=== PATIENT | female | born 1980 | race Caucasian/White ===

== ENCOUNTER 2022-08-13 09:41 | Outpatient (CLI) | payer MEDICAID, SELFPAY ==
[2022-08-13 14:11] LABS: Albumin* 4.2 g/dL (3.3-5.0); Chloride* 103 mmol/L (96-114); Sodium* 136 mmol/L (135-149)
[2022-08-13 14:13] LABS: Bilirubin Total* 0.2 mg/dL (0.1-1.5); Carbon Dioxide* 23 mmol/L (20-32); Cholesterol* 190 mg/dL (90-199); Creatinine* 0.8 mg/dL (0.5-1.5); Estimated Glomerular Filt Rate 95 ml/min
[2022-08-13 14:14] LABS: Alanine Aminotransferase* 13 U/L (4-35); Alkaline Phosphatase* 79 U/L (40-150); Aspartate Amino Transferase* 18 U/L (12-35); Blood Urea Nitrogen* 18 mg/dL (5-24); Glucose* 123 mg/dL (60-115); Total Protein* 6.6 g/dL (6.0-8.3); Triglycerides* 169 mg/dL (40-149)
[2022-08-13 14:15] LABS: Calcium* 8.8 mg/dL (8.4-10.6); HDL Cholesterol* 61 mg/dL (>=50); LDL Cholesterol Calculated 95 mg/dL (<100)
[2022-08-13 14:22] LABS: Hepatitis C Virus Antibody* Negative (Negative)
== END 2022-08-13 09:42 | disposition home or self-care (01) ==
PROVIDERS: PCP Family Medicine; Visit Provider Family Medicine
DX: Z01.419 Encounter for gynecological examination (general) (routine) without abnormal findings (principal); I10 Essential (primary) hypertension; F41.9 Anxiety disorder, unspecified; Z13.6 Encounter for screening for cardiovascular disorders; Z12.4 Encounter for screening for malignant neoplasm of cervix
CPT/HCPCS: 80053; 80061; 86803; 87624; 88175

== ENCOUNTER 2024-04-27 10:23 | Outpatient (CLI) | payer MEDICAID, SELFPAY ==
--- OUTSIDE RECORDS SUMMARY | 2024-04-27 10:26 | XMS_ITS | Continuity of Care Document ---
Author Organization [facility] Address [address] [place] [address] Phone Care Team Providers Care Small Products Assembler Name Role Phone Brittny Horvath CNP Unavailable Unavailab le Medications Medication Instructions Dosage Effective Dates (start - stop) Status Comments atenolol 25 mg tablet take 1 tablet by oral route every day 25 MG - Active simvastatin 5 mg tablet take 1 tablet by oral route every day in the evening 5 MG - Active TriNessa (28) 0.18 mg(7)/0.215 mg(7)/0.25 mg(7)-35 mcg tablet take 1 tablet by oral route every day - Active omeprazole 20 mg capsule,delayed release take 1 capsule by oral route every day before a meal 20 MG - Active sertraline 100 mg tablet take 1 Tablet by ORAL route every day 100 MG - Active trazodone 50 mg tablet take 1 tablet by oral route every day 50 MG - Active Assawoman 5 mg-325 mg tablet take 1 Tablet by ORAL route every 6 hours as needed for pain 1 Tablet - Active hydroxyzine HCl 25 mg tablet take 1 tablet by oral route 2 times every day 25 MG - Active Percocet 5 mg-325 mg tablet take 1 Tablet by ORAL route twice per day max. 2 per day - No Longer Active Neurontin 300 mg capsule take 1 capsule by oral route 3 times every day 300 MG - No Longer Active Percocet 5 mg-325 mg tablet take 1 Tablet by ORAL route twice per day max. 2 per day - No Longer Active 1 month supply Vistaril 25 mg capsule take 1 capsule by oral route 4 times every day 25 MG - No Longer Active Procedures Procedure Date Offic/outpt E&m Estab Low-mod 4 Offic Cons New/estab Mod 40 Mi 14 QA DONE Advance Directives Directive Yes / No Effective Date File Name No Information Encounters Encounter Description Practice Location Reason(s) For Visit Diagnoses Date Provider Providers Copied on Encounter Offic/outpt [facility], [address] [facility], [place], [id number], tel:[phone] [facility] No Information Alexandru Kenney. [address] [place] [address], [address], . Referring Provider: Jean Claude Muniz, [address] [place] [address], [address]. tel:[phone] Offic Cons New/estab Mod 40 Sc UGO [place], [address] [facility] [address], [place], [id number], tel:[phone] [facility] No Information Alexandru Kenney. [address] [place] [address], [address], . Referring Provider: Jean Claude Muniz, [address] [place] [address], [address]. tel:[phone] Family History Family Member Type Diagnosis Age At Onset No Information Payers Payer name Insurance type Covered green party ID Compa echevarria(s) Blue Plus [id number] Social History Type Description Quantity Date Captured Comments Alcohol Use Details No Caffeine Use Details Unknown Tobacco Use Status No Information Smoking Status Smoker, current stat us unknown Non-Smoking Tobacco Use Details : No Details Available : No Details Available Sex Female Chief Complaint And Reason For Visit No Information Reason For Referral Reason For Referral No Information History Of Present Illness Encounter Date Complaint History Of Prese nt Illness No Information Functional Status Date Functional Assessmen t No Information Instructions Date Instruction Additional Infor mation No Information Assessments Type Assessment Date No Information Patient Care Teams Name Effective Dates (start - stop) Status Members No Information
== END 2024-04-27 10:24 | disposition home or self-care (01) ==
PROVIDERS: PCP Family Medicine; Visit Provider Family Medicine
DX: Z00.00 Encounter for general adult medical examination without abnormal findings (principal); E78.5 Hyperlipidemia, unspecified; I10 Essential (primary) hypertension; R73.03 Prediabetes; N92.0 Excessive and frequent menstruation with regular cycle; F41.1 Generalized anxiety disorder
CPT/HCPCS: 80053; 80061; 82043; 82570

== ENCOUNTER 2024-05-19 14:33 | Emergency (ER) | payer MEDICAID, SELFPAY ==
[2024-05-19 14:39] VITALS: BP 129/86; PULSE 116; RESP 18; TEMP 37.3; O2SAT 98; BMI 37.8
--- OUTSIDE RECORDS SUMMARY | 2024-05-19 15:47 | XMS_ITS | Encounter Summary ---
Author Organization [place] Address [address] [place] [address] Care Team Providers Care Management Accounts Manager Name Role Phone Jose Martinez MD Primary Care Provider [phone] Ezequiel Ramesh MD Primary Care Provider + Alta Gill APRN CUFF PRESSER Unavailab le Encounter Details Date Type Department Care Team (Late st Contact Info) Description 08/25/2018 Records - [facility] CONVERSION Scan, Non-Provider Social History Tobacco Use Types Packs/Day Years Used Date Smoking Tobacco: Every Day Cigarettes Alcohol Use Standard Drinks/Week Comments Yes 0 (1 standard drink = 0.6 oz pur e alcohol) Sex and Gender Information Value Date Recorded Sex Assigned at Not on file Gender Identity Not on file Sexual Orientation Not on file documented as of this encounter Plan of Treatment Not on file documented as of this encounter Visit Diagnoses Not on filedocumented in this encounter Care Teams Management Accounts Manager Relationship Specialty Start Date End Date Jose Martinez MD PCP - General 03/05/07 06/11/21 Ezequiel Ramesh MD PCP - General 06/12/21 Alta Gill APRN CUFF PRESSER [id number] [place] [phone] Assigned Musculoskeletal Provider 06/18/21 01/25/23 documented as of this encounter
--- OUTSIDE RECORDS SUMMARY | 2024-05-19 15:47 | XMS_ITS | Encounter Summary ---
Author Organization [facility] Address [address] [place] [address] Care Team Providers Care Forest Fire Officer Name Role Phone Ezequiel Ramesh MD Primary Care Provider + Alta Gill APRN GELATIN DYNAMITE PACKING OPERATOR Unavailab le Reason for Visit * Reason Comments Medication Refill Encounter Details Date Type Department Care Team (Late st Contact Info) Description 08/22/[address] [facility] [address] [place] [address] Alta Gill APRN GELATIN DYNAMITE PACKING OPERATOR [address] [place] [address] Medication Refill Social History Tobacco Use Types Packs/Day Years Used Date Smoking Tobacco: Every Day Cigarettes 0.5 20 Smokeless Tobacco: Never Alcohol Use Standard Drinks/Week Comments No 0 (1 standard drink = 0.6 oz pur e alcohol) Sex and Gender Information Value Date Recorded Sex Assigned at Not on file Gender Identity Not on file Sexual Orientation Not on file documented as of this encounter Plan of Treatment Not on file documented as of this encounter Visit Diagnoses Diagnosis Chronic pain syndrome documented in this encounter Care Teams Forest Fire Officer Relationship Specialty Start Date End Date Ezequiel Ramesh MD PCP - General 06/12/21 Alta Gill APRN GELATIN DYNAMITE PACKING OPERATOR [id number] [place] [address] Assigned Musculoskeletal Provider 06/18/21 01/25/23 documented as of this encounter
--- OUTSIDE RECORDS SUMMARY | 2024-05-19 15:47 | XMS_ITS | Clinical Summary ---
Author Organization [facility] Address [address] [place] [address] Care Team Providers Care Proposal Coordinator Name Role Phone Ezequiel Ramesh MD Primary Care Provider + Allergies Active Allergy Reactions Criticality Noted Date Comments Clonidine Palpitations Low 06/12/2021 No Known Drug Allergy 10/08/2005 Medications Medication Sig Dispensed Refills Start Date End Date Status WAL-ZYR 10 MG OR TABS 1 TABLET DAILY Active TRAZODONE HCL 50 MG OR TABSIndications:Cy clothymic disorder 1 TABLET at Bedtime PRN 30 5 2009 Active albuterol (PROAIR HFA/PROVENTIL HFA/VENTOLIN HFA) 108 (90 Base) MCG/ACT inhaler Inhale 2 puffs into the lungs Active cholecalciferol 25 MCG (1000 UT) TABS Take 5,000 Units by mouth Active clonazePAM (KLONOPIN) 1 MG tablet Take 1 mg by mouth Active Lactobacillus Rhamnosus, GG, (RA PROBIOTIC DIGESTIVE CARE) CAPS Take 1 capsule by mouth Active sertraline (ZOLOFT) 100 MG tablet Take 200 mg by mouth Active omeprazole (PRILOSEC) [address] capsule 11/26/2020 Active amLODIPine (NORVASC) 10 MG tablet TAKE 1 TAB BY MOUTH DAILY 06/23/2021 Active CIPRODEX 0.3-0.1 % otic suspension SHAKE GENTLY AND INSTILL 4 DROPS IN AFFECTED EAR TWICE A DAY 12/09/2020 Active levonorgestrel-eth inyl estradiol (SEASONALE) 0.15-0.03 MG tablet Take 1 tablet by mouth daily 07/06/2021 Active buPROPion (WELLBUTRIN XL) 150 MG 24 hr tablet Take 150 mg by mouth daily 12/18/2021 Active sertraline (ZOLOFT) 100 MG tablet Take 200 mg by mouth daily 12/18/2021 Active tiZANidine (ZANAFLEX) 4 MG tabletIndications: Chronic pain syndrome Take 1 tablet (4 mg) by mouth every 6 hours as needed for muscle spasms 90 tablet 1 03/06/2022 Active pregabalin (LYRICA) 50 MG capsuleIndications :Mid back pain, chronic,Chronic bilateral low back pain without sciatica,Chronic pain of right ankle Take 1 capsule (50 mg) by mouth At Bedtime 30 capsule 1 03/06/2022 Active meloxicam (MOBIC) 15 MG tabletIndications: Chronic pain syndrome TAKE 1 TABLET BY MOUTH EVERY DAY 30 tablet 1 03/19/2022 Active Additional Information Patient not taking.Reported on 03/20/2022 rosuvastatin (CRESTOR) 10 MG tablet Take 10 mg by mouth 12/18/2021 Activ e meloxicam (MOBIC) 7.5 MG tabletIndications: Chronic pain of right ankle Take 1 tablet (7.5 mg) by mouth daily 30 tablet 1 03/20/2022 Active Active Problems Problem Noted Date Diagnosed Date CARDIOVASCULAR SCREENING; LDL GOAL LESS THAN 160 09/10/2010 Family history of diabetes mellitus 02/05/2007 Hypersomnia with sleep apnea 02/05/2007 Overview: Problem list name updated by automated process. 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 Resolved Problems Problem Noted Date Diagnosed Date Resolved Date General counseling for initi ation of other contraceptive measures 02/05/2007 02/05/2007 Immunizations Name Administration Dates Next Due HepB 12/26/1994,08/06/1994,06/07/1994 Historical DTP/aP 04/29/1984,08/20/1983,04/25/19 83,1982,1982 MMR 06/07/1994,08/20/1983 OPV, trivalent, live 04/29/1984,04/25/1983,07/11,1982 TD,PF 7+ (Tenivac) 10/26/2004 Family History Medical History Relation Comments Alcohol/Drug Father Alcohol Hypertension Father Lipids Father Arthritis Maternal Grandfather Eye Disorder Maternal Grandfather Glaucoma Heart Disease Maternal Grandfather Breast Cancer Maternal Grandmother Heart Disease Paternal Grandfather Hypertension Paternal Grandfather Breast Cancer Paternal Grandmother Hypertension Paternal Grandmother Lipids Paternal Grandmother Relation Status Comments Father Alive Maternal Grandfather Maternal Grandmother Alive Mother Alive Paternal Grandfather Alive Paternal Grandmother Alive Social History Tobacco Use Types Packs/Day Years Used Date Smoking Tobacco: Every Day Cigarettes 0.5 20 Smokeless Tobacco: Never Tobacco Cessation:Ready to Q uit: Yes; Counseling Given: Yes Alcohol Use Standard Drinks/Week Comments No 0 (1 standard drink = 0.6 oz pur e alcohol) Adolescent Education Answer Date Record ed Getting School Help Needed Not on file 08/04 Sex and Gender Information Value Date Recorded Sex Assigned at Not on file Gender Identity Not on file Sexual Orientation Not on file Last Filed Vital Signs Vital Sign Reading Time Taken Comments Blood Pressure 138/91 03/20/2022 10:32 AM CDT Pulse 88 03/20/2022 10:32 AM CDT Temperature 37.3 ??C (99.2 ??F) 04/07/2009 2:03 PM CD T Respiratory Rate - - Oxygen Saturation 98% 03/20/2022 10:32 AM CDT Inhaled Oxygen Concentration - - Weight 103 kg (227 lb 1.6 oz) 03/06/2022 8:27 AM CDT Height 162.6 cm (5' 4) 02/16/2020 12:49 PM CDT Body Mass Index 38.98 02/16/2020 12:49 PM CDT Plan of Treatment Health Maintenance Due Date Last Done Comments ADVANCE CARE PLANNING 1982 ANNUAL REVIEW OF HM ORDERS 1982 LIPID 1982 MAMMO SCREENING 1982 Pneumococcal Vaccine: Pediatrics (0 to 5 Years) and At-Risk Patients (6 to 64 Years) (1 of 2 - PCV) 1988 HIV SCREENING 1997 HEPATITIS C SCREENING 2000 YEARLY PREVENTIVE VISIT 02/06/2008 02/05/2007 GLUCOSE 05/29/2013 05/29/2010, 05/11, 05/27/2010 PAP 04/01/2021 04/01/2018, 01/10, 10/15/2004 DTAP/TDAP/TD IMMUNIZATION (7 - Td or Tdap) 01/26/2023 01/26/2013, 10/26/2004, 10/26/2004, Additional history exists COVID-19 Vaccine (2022- season) 2023 PHQ-2 (once per calendar year) 2023 INFLUENZA VACCINE (Season Ended) 2024 09/17/2019, 08/08/2018, 08/01/2016, Additional history exists IPV IMMUNIZATION Completed 04/29/1984, , 1982, Additional history exists HEPATITIS B IMMUNIZATION Completed 995, 12/26/1994, 08/06/1994, Additional history exists HPV IMMUNIZATION Aged Out No longer e ligible based on patient's age to complete this topic MENINGITIS IMMUNIZATION Aged Out No l onger eligible based on patient's age to complete this topic RSV MONOCLONAL ANTIBODY Aged Out No l onger eligible based on patient's age to complete this topic Medical Devices Implanted Type Area Maintenance Of Way Foreman Device Identifier Shelf Expiration Date Model / Serial / Lot Bone Chip Cancellous 15cc [id number] - [id number] Implanted:Qty: 1 on 10/28/2015 Bone/Tissue/ Biologic Right: Ankle [employer] 07/06/2020 [id number] / [id number] / [id number] Bone Chips Cancellous 15cc 1-8mm - [id number] - [id number] Implanted:Qty: 1 on 12/07/2016 Bone/Tissue/ Biologic Right: Ankle HORTENSIA SP 08/12/2021 [id number] / [id number] / [id number] Screw Cancellous 6.5 X 80mm 216.080 Implanted:Qty: 1 on 10/28/2015 Metallic Hardware/Anc hor Right: Ankle SYNTHES 12/31/2019 216.080 / / [id number] Screw Cancellous 6.5 X 90mm 216.090 Implanted:Qty: 1 on 10/28/2015 Metallic Hardware/Anc hor Right: Ankle SYNTHES 12/31/2019 216.090 / / [id number] Right Ankle Procedures Procedure Name Priority Date/Time Associated Diagnosis Comments GLUCOSE Routine 05/29/2010 7:25 AM CDT HCL PAP THIN LAYER SCREEN Routine 02/05/2007 12:00 AM CDT Routine Medical Exam from Last 3 Months or Most Recently Relevant to Health Maintenance Results * Glucose (05/29/2010 7:25 AM CDT) Glucose 70 60 - 99 mg/dL MISYS 05/29/2010 7:25 AM CDT 05/28/2010 12:20 PM CDT Anita Rg MD LAB - BLOOD ORDER CRISTOBAL MISYS * A THIN LAYER PAP SCREEN (02/05/2007 12:00 AM CDT) PAP NIL COPATH Copath Report Patient Name: YELITZA PATIÑO MR#: [id number] Specimen #: [id number] Collected: 02/05/2007 Received: 02/06/2007 Reported: 02/10/2007 08:07 Ordering Phy(s): BONNY MARTINEZ SPECIMEN/STAIN PROCESS: Pap thin layer prep screening ([facility]) ? Pap-Cyto x 1, Reflex HPV x 1 SOURCE: Cervical, endocervical Pap thin layer prep screening ([facility]) SPECIMEN ADEQUACY: Satisfactory for evaluation. -Transformation zone component absent. CYTOLOGIC INTERPRETATION: Negative for Intraepithelial Lesion or Malignancy Electronically signed out by: PARUL Pederson (ASCP) Processed and screened at [facility] CLINICAL HISTORY: LMP: 01-25-07 TESTING LAB LOCATION: [address] ??[phone] COLLECTION SITE: Client: ??[facility] Location: CRFP (R) COPATH 02/05/2007 02/06/2007 2:3 0 PM CDT Bonny Martinez MD LABORATORY COPATH from Last 3 Months or Most Recently Relevant to Health Maintenance Care Teams Proposal Coordinator Relationship Specialty Start Date End Date Ezequiel Ramesh MD PCP - General 06/12/21
--- OUTSIDE RECORDS SUMMARY | 2024-05-19 15:47 | XMS_ITS | Referral Summary ---
Author Organization [facility] Address [address] [place] [address] Care Team Providers Care Hospital Education Coordinator Name Role Phone Ezequiel Ramesh MD [...] trivalent, live 04/29/1984,04/25/1983,07/11,1982 TD,PF 7+ (Tenivac) 10/26/2004 Social History Tobacco Use Types Packs/Day Years [...] 02/16/2020 12:49 PM CDT Plan of Treatment Not on file Medical Devices Implanted Type Area Copy Camera Operator Device Identifier Shelf Expiration Date Model / Serial / Lot Bone Chip Cancellous 15cc [id number] - [id number] Implanted:Qty: 1 on 10/28/2015 Bone/Tissue/ Biologic Right: Ankle [employer] 07/06/2020 [id number] / [id number] / [id number] Bone Chips Cancellous 15cc 1-8mm - [id number] - [id number] Implanted:Qty: 1 on 12/07/2016 Bone/Tissue/ Biologic Right: Ankle HORTENS[employer] SP 08/12/2021 [id number] / [id number] / [id number] Screw Cancellous 6.5 X 80mm 216.080 [...] PAP SCREEN (02/05/2007 12:00 AM CDT) PAP NUBIA [place] Report Patient Name: YELITZA PATIÑO MR#: [id number] Specimen #: [id number] Collected: 02/05/2007 Received: 02/06/2007 Reported: 02/10/2007 08:07 [...] PARUL Pederson (ASCP) Processed and screened at [facility] CLINICAL HISTORY: LMP: 01-25-07 TESTING LAB LOCATION: [address] ??[phone] COLLECTION SITE: Client: ??[facility] Location: CRFP (R) COPATH 02/05/2007 02/06/2007 2:3 0 PM CDT Bonny Martinez MD LABORATORY COPATH from Last 3 Months or Most Recently Relevant to Health Maintenance Care Teams Hospital Education Coordinator Relationship Specialty Start Date End Date Ezequiel Ramesh MD PCP - General 06/12/21
--- OUTSIDE RECORDS SUMMARY | 2024-05-19 15:47 | XMS_ITS | Clinical Summary ---
Author Organization [facility] Address [place], [place] [address] Care Team Providers Care Gifts Officer Name Role Phone Elva Lima DO Primary Care Provid er Allergies Active Allergy Reactions Criticality Noted Date Comments Clonidine Palpitations Low 06/12/2021 Medications Medication Sig Dispensed Refills Start Date End Date Status CLINDAGEL 1 % TOPICAL apply a thin film to the affected skin areas by topical route once daily 1 0 06/01/2008 Active CITALOPRAM 40 MG TAB take 1 tablet (40 mg) by oral route once daily 90 1 06/01/2008 Active ORTHO TRI-CYCLEN (28) 0.18/0.215/0.25 MG-35 MCG(28) TAB take 1 tablet by oral route once daily 3 months 3 06/01/2008 Active FLUOXETINE 20 MG TAB take 1 tablet (20 mg) by oral route once daily in the morning 30 5 06/23/2008 Active ATIVAN 0.5 MG TAB 1-2 PO q 8 hours as needed 30 0 08/25/2008 Active VICODIN 5 MG-500 MG TAB take 1 tablet by oral route every 4-6 hours as needed for pain 20 0 08/26/2008 Active FLUTICASONE 50 MCG/ACTUATION NASAL SPRAY, SUSPIndications:Chron ic rhinitis 2 PUFFS EACH NOSTRIL QD 1 6 09/14/2008 Active TRAZODONE 50 MG TAB Take one PO q HS as needed 30 0 10/01/2008 Active PRILOSEC 40 MG CAP take 1 capsule (40 mg) by oral route once daily before a meal 0 12/29/2008 Active albuterol HFA (PRO-AIR; VENTOLIN; PROVENTIL) 90 mcg/actuation inhaler Inhale 2 Puffs by mouth. Active amLODIPine (NORVASC) 10 mg tablet Take 1 Tablet by mouth once daily. 06/23/2021 Active buPROPion (WELLBUTRIN XL) 150 mg Extended-Release tablet Take 150 mg by mouth. 12/18/2021 Active clonazePAM (KLONOPIN) 1 mg tablet Take 1 mg by mouth. Active Lactobacillus rhamnosus GG (CULTURELLE) 15 billion cell capsule Take 1 Capsule by mouth. Active levonorgestrel-ethiny l estradiol (SEASONALE) 0.15 mg-30 mcg (91) tablet Take 1 Tablet by mouth once daily. 07/06/2021 Active meloxicam (MOBIC) 7.5 mg tablet Take 7.5 mg by mouth. Active pregabalin (LYRICA) 50 mg capsule Take 50 mg by mouth. 03/06/2022 Active rosuvastatin (CRESTOR) 10 mg tablet Take 10 mg by mouth once daily. 02/07/2022 Active sertraline (ZOLOFT) 100 mg tablet Take 200 mg by mouth. 12/18/2021 Active tiZANidine (ZANAFLEX) 4 mg tablet Take 4 mg by mouth. 03/06/2022 Active Active Problems Problem Noted Date Diagnosed Date Myopia of both eyes with astigmatism 03/07/2022 Chronic rhinitis 09/14/2008 Chronic Recurrent Otitis Media 09/14/2008 Allergic rhinitis, cause unspecified 02/25/2006 FATIGUE 10/07/2000 SYNDROME, PREMENSTRUAL TENSION 08/07/2000 DYSMENORRHEA 08/07/2000 ACNE 08/07/2000 ANISOCORIA- OD>OS 05/27/2000 PAIN IN JOINT, ANKLE/FOOT 03/29/2000 TREMOR NEC 02/16/2000 ANXIETY - UNSPECIFIED 02/16/2000 Immunizations Name Administration Dates Next Due DTP 04/29/1984,08/20/1983,04/25/1983 ,1982,1982 Hepatitis B (Peds) 12/26/1994,08/06/1994, 994 MMR 06/07/1994,08/20/1983 Oral Polio Vaccine 04/29/1984,04/25/1983, 982,1982 Td (Age >=7 Years) 10/26/2004,04/02/1994 Tuberculin (PPD) 04/25/1983 Family History Medical History Relation Name Comments Hypertension Father Cancer-breast Maternal Grandmother Genetic Other 1 thyroid disease . Genetic Other 2 Father: Hyperch ol and HTN~Mother: healthy~3 siblings, all are healthy.~MGM AND PGM: breast cancer Cancer-breast Paternal Grandmother Relation Name Status Comments Father Maternal Grandmother Other 1 Other 2 Paternal Grandmother Social History Tobacco Use Types Packs/Day Years Used Date Smoking Tobacco: Every Day Cigarettes Alcohol Use Standard Drinks/Week Comments Yes 33.3 (1 standard drink = 0.6 oz pure alcohol) weekly Sex and Gender Information Value Date Recorded Sex Assigned at Not on file Gender Identity Not on file Sexual Orientation Not on file Obstetrics History Last Filed Vital Signs Vital Sign Reading Time Taken Comments Blood Pressure 120/86 12/29/2008 4:58 PM AGRICULTURAL EQUIPMENT DESIGN ENGINEER Pulse 66 12/29/2008 4:58 PM AGRICULTURAL EQUIPMENT DESIGN ENGINEER Temperature 36 ??C (96.8 ??F) 12/29/2008 4:58 PM AGRICULTURAL EQUIPMENT DESIGN ENGINEER Respiratory Rate 16 09/14/2008 1:39 PM AGRICULTURAL EQUIPMENT DESIGN ENGINEER Oxygen Saturation - - Inhaled Oxygen Concentration - - Weight 94.8 kg (209 lb) 12/29/2008 4:58 PM AGRICULTURAL EQUIPMENT DESIGN ENGINEER Height 165.7 cm (5' 5.25) 06/01/2008 11:42 AM C DT Body Mass Index 34.51 06/01/2008 11:42 AM CDT Plan of Treatment Health Maintenance Due Date Last Done Comments Tdap 1993 Depression screening for age 12+ 1994 HIV for age 15-65 1997 BMI (ht and wt on same day) for age 18+ 2000 Hepatitis C screening for age 18-79 2000 Tetanus booster 10/26/2014 10/26/2004, 04/02/1994 COVID-19 vaccine series ( season) 2023 Influenza for age 9-49 07/12/2024 Pap test for age 21-65 08/13/2025 , 08/13/2022, 04/01/2018, Additional history exists Pneumococcal series for age 6-64 Aged Out No longer eligible based on patient's age to complete this topic Procedures Procedure Name Priority Date/Time Associated Diagnosis Comments HPV THIN PREP Routine 08/13/2022 9:10 AM CDT from Last 3 Months or Most Recently Relevant to Health Maintenance Results * (ABNORMAL) HPV HIGH RISK (08/13/2022 9:10 AM CDT) TYPE 16 Negative Negative 08/15/2022 5:13 PM CDT [facility] TYPE 18 Negative Negative 08/15/2022 5:13 PM CDT [facility] OTHER HIGH RISK TYPES Positive(A) Negative 08/15/2022 5:13 PM CDT [facility] Other (Cervical) 08/13/2022 9:10 AM CDT 08/14/2022 8:24 AM CDT Narrative [facility] - 08/15/2022 5:13 PM CDT Specimen is positive for the DNA of any one of, or combination of, the following high risk HPV types: 31, 33, 35, 39, 45, 51, 52, 56, 58, 59, 66, 68. HPV types 16 and 18 DNA were undetectable or below the pre-set threshold. ? Methodology: Mayo Kaushik 4800 HPV Test Anita Blackmon MD MICROBIOLOGY [facility] [address] [place] [address], from Last 3 Months or Most Recently Relevant to Health Maintenance Care Teams Gifts Officer Relationship Specialty Start Date End Date Elva Lima DO PCP - General Family Practice 04/13/14
--- OUTSIDE RECORDS SUMMARY | 2024-05-19 15:47 | XMS_ITS | Continuity of Care Document ---
Author Organization [facility] Address [address] [place] [address] Phone Care Team Providers Care Sustainability Coach Name Role Phone Brittny Horvath CNP Unavailable [...] route every day 50 MG - Active Spencer 5 mg-325 mg tablet take 1 Tablet [...] Offic/outpt E&m Estab Low-mod [facility], [address] [facility] [address], [place], [id number], tel:[phone] [facility] No Information Alexandru Kenney. [address] [place] [address], [address], . Referring Provider: Jean Claude Muniz, [address] [place] [address], [address]. tel:[phone] Offic Cons New/estab Mod 40 [address] UGO [place], [address] [facility] [address], [place], [id number], tel:[phone] [facility] No Information Alexandru Kenney. [address] [place] [address], [address], . Referring Provider: Jean Claude Muniz, [address] [place] [address], [address]. tel:[phone] Family History Family Member Type Diagnosis Age At Onset No Information Payers Payer name Insurance type Covered alliance party ID Compa echevarria(s) Blue Plus [id number] Social History Type Description Quantity Date Captured [...]
--- OUTSIDE RECORDS SUMMARY | 2024-05-19 15:47 | XMS_ITS | Patient Health Record ---
Author Organization [facility] Address [address] [place] [address] [address] [place] [address] Care Team Providers Care Tie Mill Operator Name Role Phone Anita Blackmon MD Primary Care Provider David Perez Unavailable [phone] ALLERGIES Allergen (clinical drug ingredient) Drug/Non Drug Allergy documented on EMR Reaction Allergy Type Onset Date Status Adhesive rash Allergy Active clonidine Clonidine decreased HR / Anxiety Drug Allergy Active REASON FOR REFERRAL No Information MEDICATIONS Medication SIG (Take, Route, Frequency, Duration) Notes Start Date End Date Status DULoxetine HCl 60 MG 1 capsule Orally On ce a day Active Propranolol HCl 20 MG 1 tablet Orally as needed Active Losartan Potassium 100 MG 1 tablet Orall y Once a day Active Abilify 10 MG 1 tablet Orally Once a day Active tiZANidine HCl 4 MG 0.5-1 tablet as need ed Orally Twice a day for 30 days Active Topamax 50 MG 1 tablet Orally Once a day for 30 days Active Omeprazole 40 MG 1 capsule 30 minutes before morning meal Orally Once a day Active tiZANidine HCl 4 MG 1 tablet as needed O rally Three times a day Active clonazePAM 1 MG 1 tablet Orally As needed Active Rosuvastatin Calcium 10 MG 1 tablet Oral ly Once a day Active SOCIAL HISTORY Tobacco Use: Social History Observation Description Date Details (start date - stop date) Current Smoker NA - NA Sex Assigned At : Social History Observation Description Sex Assigned At Unknown Tobacco Use/Smoking: Question Answer Notes Are you a current smoker How often do you smoke cigarettes? every day Alcohol Screen Question Answer Notes Did you have a drink contain ing alcohol in the past year? Yes How often did you have a dri nk containing alcohol in the past year? 2 to 3 times a week (3 points) Points 3 Interpretation Positive PROBLEMS Problem Type ICD Code Onset Dates Problem Status W/U Status Risk SNOMED Code Notes Problem Other chronic pain (G89.29) Active confirmed Chronic pain (48687323) Problem Muscle wasting and atrophy, not elsewhere classified, multiple sites (M62.59) Active confirmed Muscle wasting disorder (79048718) Problem Low back pain, unspecified (M54.50) Active confirmed Low back pain (710766881) PLAN OF TREATMENT Pending Test Test Name Order Date MRI : Lumbar 03/14/2023 Insurance Providers Payer Name Payer Address Payer Phone Subscriber Number Group Number Insured Name Patient Relationship to Insured Coverage Start Date Coverage End Date [facility] PMAP [address] [place] [address] [id number] Erika Yelitza Self - patient is the insured [facility] [address] [address] [place], [place] [id number] [phone] [id number] Erika Yelitza Self - patient is the insured 9 MEDICAL (GENERAL) HISTORY Medical History History ICD Code Anxiety Depression High Cholesterol Hypertension Surgical History Surgery Date(Month/Year) 8 ankle surgeries starting 2 013 at [facility] with Earl Urban MD
--- OUTSIDE RECORDS SUMMARY | 2024-05-19 15:47 | XMS_ITS | Encounter Summary ---
Author Organization [facility] Address [address] [place] [address]. [place] [address] Care Team Providers Care Linux Kernel Engineer Name Role Phone Ezequiel Ramesh MD Primary Care Provider + Alta Gill APRN INSPECTION AND TESTING SUPERVISOR Unavailab le Reason for Visit * Reason Comments Medication Refill Encounter Details Date Type Department Care Team (Late st Contact Info) Description 06/12/[address] [facility] [address] [place] [address] Alta Gill APRN INSPECTION AND TESTING SUPERVISOR [address] [place] [address] Medication Refill Social History Tobacco Use Types Packs/Day Years Used Date Smoking Tobacco: Every Day Cigarettes 0.5 20 Smokeless Tobacco: Never Alcohol Use Standard Drinks/Week Comments No 0 (1 standard drink = 0.6 oz pur e alcohol) Sex and Gender Information Value Date Recorded Sex Assigned at Not on file Gender Identity Not on file Sexual Orientation Not on file COVID-19 Exposure Response Date Recorded In the last month, have you been in contact with someone who was confirmed or suspected to have Coronavirus / COVID-19? No / Unsure 06/12/2021 12:49 PM CDT documented as of this encounter Miscellaneous Notes * Telephone Encounter - Nathalie Roblero RN - 06/13/2021 8:45 AM CDT Refill request: tizanidine 4 mg Last apt with CM: 06/13/21 Next apt with CM: 07/24/21 Pending Prescriptions: Disp Refills tiZANidine (ZANAFLEX) 4 MG tablet [Pharma*90 tab*1 Sig: Take 1 tablet (4 mg) by mouth every 6 hours as needed for muscle spasms [facility] documented in this encounter Plan of Treatment Not on file documented as of this encounter Visit Diagnoses Diagnosis Chronic pain syndrome Pain in unspecified ankle and joints of unspecified foot documented in this encounter Care Teams Linux Kernel Engineer Relationship Specialty Start Date End Date Ezequiel Ramesh MD PCP - General 06/12/21 Alta Gill APRN INSPECTION AND TESTING SUPERVISOR [id number] [place] [address] Assigned Musculoskeletal Provider 06/18/21 01/25/23 documented as of this encounter
--- OUTSIDE RECORDS SUMMARY | 2024-05-19 15:47 | XMS_ITS | Encounter Summary ---
Author Organization [facility] Address [facility] [place] [address] Care Team Providers Care Supply Chain Design Manager Name Role Phone Ezequiel Ramesh MD Primary Care Provider + Alta Gill APRN GARNETT MACHINE OPERATOR HELPER Unavailab le Reason for Visit * Reason Onset Date Comments Call Back 10/09/2022 Encounter Details Date Type Department Care Team (Late st Contact Info) Description 10/09/2022 Telephone [facility] [address] [place] [address] Pain Management Program, [facility] Call Back Social History Tobacco Use Types Packs/Day Years Used Date Smoking Tobacco: Every Day Cigarettes 0.5 20 Smokeless Tobacco: Never Alcohol Use Standard Drinks/Week Comments No 0 (1 standard drink = 0.6 oz pur e alcohol) Sex and Gender Information Value Date Recorded Sex Assigned at Not on file Gender Identity Not on file Sexual Orientation Not on file documented as of this encounter Miscellaneous Notes * Telephone Encounter - Olivia Clemens - 10/09/2022 9:35 AM CST LVM for patient to schedule 60 minute in clinic transfer of care appointment with Catalina Jones.When patient returns the call please transfer patient to [phone] to schedule Olivia Clemens Furnace Hand [facility] A PRESS OPERATOR documented in this encounter Plan of Treatment Not on file documented as of this encounter Visit Diagnoses Not on filedocumented in this encounter Care Teams Supply Chain Design Manager Relationship Specialty Start Date End Date Ezequiel Ramesh MD PCP - General 06/12/21 Alta Gill APRN GARNETT MACHINE OPERATOR HELPER [id number] [place] [address] Assigned Musculoskeletal Provider 06/18/21 01/25/23 documented as of this encounter
--- NOTE | 2024-05-19 17:13 | ED_ITS ---
HPI - General Adult General Chief complaint: Skin/Abscess/Foreign Body Stated complaint: L lower back-skin concern Time Seen by Provider: 05/19/24 14:46 Source: patient Mode of arrival: ambulatory Limitations: no limitations History of Present Illness HPI narrative: Patient is a 44-year-old woman, underlying diabetes. Seen a few days ago in urgent care with an area of redness and induration on her back and started on Keflex. She reports it has gotten worse instead of better, tactile fevers, no vomiting. Related Data Previous Rx's ?Medication ?Instructions ?Recorded omeprazole 40 mg capsule,delayed 40 mg PO QDAY #90 caps 04/16/24 release buspirone 5 mg tablet 5 mg PO BID #60 tabs 04/27/24 duloxetine 30 mg capsule,delayed 30 mg PO QDAY #30 caps 04/27/24 release duloxetine 60 mg capsule,delayed 60 mg PO QHS #90 caps 04/27/24 release losartan 100 mg tablet 100 mg PO QDAY #90 tabs 04/27/24 semaglutide 0.25 mg or 0.5 mg (2 0.25 mg (0.368 mL) subcut QWEEK 4 04/27/24 mg/3 mL) subcutaneous pen injector weeks #1.472 mL (Ozempic) tizanidine 4 mg tablet See Rx Instructions .Route 04/27/24 .COMPLEX #90 tabs cephalexin 500 mg capsule 500 mg PO TID 7 days #21 caps 05/15/24 Allergies Allergy/AdvReac Type Severity Reaction Status Date / Time adhesive Allergy Intermediate rash Verified 05/19/24 14:45 Kjvyndq-NSR-MoY Reductase Allergy muschle Verified 05/19/24 14:45 Inhibitor cramps clonidine AdvReac Severe Verified 05/19/24 14:45 Review of Systems Status of ROS: Reports: 6 or more systems reviewed and unremarkable except as noted in History and below PFSH [facility] Medical History Gestational diabetes ?O24.419 - Gestational diabetes mellitus in , unspecified control (ICD-10) Prediabetes ?R73.03 - Prediabetes (ICD-10) Family History Maternal Grandmother Breast cancer, Onset Age: 60 Paternal Grandmother Breast cancer, Onset Age: 60 Heart disease Maternal Grandfather Heart disease Father Lung cancer Other High blood pressure Hyperlipidemia Social History Narrative: cigarette smoker- 1 ppd does not drink alcohol does not use illicit drugs What is your current living situation?: I presently have a place to live Problems where you live: no known problems In the past 12 months, utilities in danger of being shut off: no In past 12 months, lack of transportation kept you from medical appts, meetings, work, or getting things needed for daily living: no In the past 12 mos, have been you worried that your food would run out before you had money to buy more?: never true In the past 12 mos, the food you bought just didn't last and you didn't have money to buy more?: never true Smoking Status: Current some day smoker How often does anyone, including family, friends and others, physically hurt you : never How often does anyone, including family, friends and others, insult or talk down to you: never How often does anyone, including family, friends and others, threaten you with harm: never How often does anyone, including family, friends and others, scream or curse at you: never Little interest or pleasure in doing things: more than half the days Feeling down, depressed, or hopeless: nearly every day Exam Narrative: Exam Narrative: Vital signs reviewed. She is afebrile. She is mildly tachycardic. In general, alert, well-appearing woman. Skin: Examination of her back shows an area of induration and erythema on the left lumbar region. There is a palpable abscess underneath the skin, tenderness in this area. There is not significant surrounding erythema however. Const: Vital Signs, click to edit/add: Vital Signs - 24 hr 05/19/24 14:39 Temperature 99.2 F Pulse Rate [Pulse Oximeter] 116 H Respiratory Rate 18 Blood Pressure [Ri ght Upper Arm] 129/86 Pulse Oximetry 98 Oxygen Delivery Me thod Room Air Course Course ED Course: Procedure note: The area overlying the palpable abscess was anesthetized using lidocaine with epinephrine. I then used a #15 Blade to make a 2 cm incision ov erlying this area. A large amount of purulent material was expressed. Loculations were broken up with a mosquito. She tolerated this well without immediate complications. A dressing was applied by the nurse. I recommended that she continue with the Keflex she is on and I am going to add Bactrim, wound culture pending. I would anticipate that this will improve fairly rapidly after drainage, if worsening in any way, she should come back. Otherwise recheck in clinic in a couple of days. Recommend Sitz baths several times a day and agitate this area with some water. I also prescribed oxycodone, 8 tablets from [facility] if needed for pain. Vital Signs Vital signs: Initial Vital Signs Temperature 99.2 F 05/19/24 14:39 Temperature Source Temporal Artery Scan 05/19/24 14:39 Pulse Rate 116 H 05/19/24 14:39 Pulse Rhythm Regular 05/19/24 14:39 Pulse Strength 3+ Normal 05/19/24 14:39 Respiratory Rate 18 05/19/24 14:39 Blood Pressure 129/86 05/19/24 14:39 Blood Pressure Mean 100 05/19/24 14:39 Blood Pressure Position Sitting 05/19/24 14:39 Pulse Oximetry 98 05/19/24 14:39 Oxygen Delivery Method Room Air 05/19/24 14:39 Vital Signs Temperature 99.2 F 05/19/24 14:39 Pulse Rate 116 H 05/19/24 14:39 Respiratory Rate 18 05/19/24 14:39 Blood Pressure 129/86 05/19/24 14:39 Pulse Oximetry 98 05/19/24 14:39 Oxygen Delivery Method Room Air 05/19/24 14:39 Temperature 99.2 F 05/19/24 14:39 Pulse Rate 116 H 05/19/24 14:39 Respiratory Rate 18 05/19/24 14:39 Blood Pressure 129/86 05/19/24 14:39 Pulse Oximetry 98 05/19/24 14:39 Oxygen Delivery Method Room Air 05/19/24 14:39 Discharge Plan Discharge Clinical Impression: Abscess, Diabetes Patient Disposition: Home, Self-Care Condition: Improved Instructions: Abscess Incision and Drainage (DC) Additional Instructions: Continue the Keflex, add Bactrim as prescribed. You should be seen in clinic in a couple of days for recheck. Anticipate improvement over the next 48-72 hours. If you are dramatically worse, have severe pain, shaking chills, high fevers, vomiting or other new symptoms, return to the emergency department for re- evaluation. Sitz baths a few times a day over the next couple of days, agitate the area. Dressing changes as needed, you will want to keep this covered as it will drain. Prescriptions: No Action cephalexin 500 mg capsule 500 mg PO TID 7 Days Qty: 21 0RF duloxetine 30 mg capsule,delayed release(DR/EC) 30 mg PO QDAY Qty: 30 12RF losartan 100 mg tablet 100 mg PO QDAY Qty: 90 3RF tizanidine 4 mg tablet See Rx Instructions .ROUTE .COMPLEX Qty: 90 1RF Dose Instruction: TAKE 1 TABLET BY MOUTH EVERY 6 TO 8 HOURS NEEDED. Rx Instructions: TAKE 1 TABLET BY MOUTH EVERY 6 TO 8 HOURS NEEDED. buspirone 5 mg tablet 5 mg PO BID Qty: 60 12RF duloxetine 60 mg capsule,delayed release(DR/EC) 60 mg PO QHS Qty: 90 3RF Ozempic 0.25 mg or 0.5 mg (2 mg/3 mL) pen injector 0.25 mg subcut QWEEK 28 Days Qty: 1.472 0RF Rx Instructions: for 4 weeks omeprazole 40 mg capsule,delayed release(DR/EC) 40 mg PO QDAY Qty: 90 0RF Follow Up/Referrals: Anita Blackmon MD [Primary Care Provider] - Stand Alone [facility]
== END 2024-05-19 16:03 | disposition home or self-care (01) ==
LOC: ED 15:45
PROVIDERS: Emergency Provider Emergency Medicine; PCP Family Medicine
DX: L02.212 Cutaneous abscess of back [any part, except buttock and flank] (principal); E11.9 Type 2 diabetes mellitus without complications
CPT/HCPCS: 10060; 87070; 87186; 99283; 99284

== ENCOUNTER 2024-05-25 10:07 | Outpatient (CLI) | payer MEDICAID, SELFPAY ==
--- OUTSIDE RECORDS SUMMARY | 2024-05-25 10:09 | XMS_ITS | Encounter Summary ---
Author Organization [facility] Address [address] [place] [address]. [place] [address] Care Team Providers Care Social Worker Health Services Name Role Phone Ezequiel Ramesh MD Primary Care Provider + Alta Gill APRN LODGE ATTENDANT Unavailab le Reason for Visit * Reason Comments Medication Refill Encounter Details Date Type Department Care Team (Late st Contact Info) Description 06/12/2021 Refill [facility] [address] [place] [address] Alta Gill APRN LODGE ATTENDANT [address] [place] [address] Medication Refill Social History Tobacco Use Types [...] foot documented in this encounter Care Teams Social Worker Health Services Relationship Specialty Start Date End Date Ezequiel Ramesh MD PCP - General 06/12/21 Alta Gill APRN LODGE ATTENDANT [address] [place] [address] Assigned Musculoskeletal Provider 06/18/21 01/25/23 documented as of this encounter
--- OUTSIDE RECORDS SUMMARY | 2024-05-25 10:09 | XMS_ITS | Encounter Summary ---
Author Organization [facility] Address [address] [place] [address] Care Team Providers Care Ethnology Professor Name Role Phone Jose Martinez MD Primary Care Provider [phone] Ezequiel Ramesh MD Primary Care Provider + Alta Gill APRN ASSESSMENT CONSULTANT Unavailab le Encounter Details Date Type Department [...] on filedocumented in this encounter Care Teams Ethnology Professor Relationship Specialty Start Date End Date Jose Martinez MD PCP - General 03/05/07 06/11/21 Ezequiel Ramesh MD PCP - General 06/12/21 Alta Gill APRN ASSESSMENT CONSULTANT [address] [address] [id number] Assigned Musculoskeletal Provider 06/18/21 01/25/23 documented as of this encounter
--- OUTSIDE RECORDS SUMMARY | 2024-05-25 10:09 | XMS_ITS | Referral Summary ---
Author Organization [facility] Address [address] [place] [address] Care Team Providers Care Corporate Health Consultant Name Role Phone Ezequiel Ramesh MD Primary [...] on file Medical Devices Implanted Type Area Fagoter Device Identifier Shelf Expiration Date Model / Serial / Lot Bone Chip Cancellous 15cc [id number] - [id number] Implanted:Qty: 1 on 10/28/2015 Bone/Tissue/ Biologic Right: Ankle [employer] 07/06/2020 [id number] / [id number] / [id number] Bone Chips Cancellous 15cc 1-8mm - [id number] - [id number] Implanted:Qty: 1 on 12/07/2016 Bone/Tissue/ Biologic Right: Ankle [employer] 08/12/2021 [id number] / [id number] / [id number] Screw Cancellous 6.5 X 80mm 216.080 [...] Rodriguez Report Patient Name: YELITZA PATIÑO MR#: [id number] Specimen #: [id number] Collected: 02/05/2007 Received: 02/06/2007 Reported: 02/10/2007 08:07 [...] PARUL Pederson (ASCP) Processed and screened at [facility] CLINICAL HISTORY: LMP: 01-25-07 TESTING LAB LOCATION: [address] ??[id number] COLLECTION SITE: Client: ??[facility] Location: [facility] (R) COPATH 02/05/2007 02/06/2007 2:3 0 PM CDT Bonny Martinez MD LABORATORY COPATH from Last 3 Months or Most Recently Relevant to Health Maintenance Care Teams Corporate Health Consultant Relationship Specialty Start Date End Date Ezequiel Ramesh MD PCP - General 06/12/21
--- OUTSIDE RECORDS SUMMARY | 2024-05-25 10:09 | XMS_ITS | Patient Health Record ---
Author Organization [facility] Address [address] [place] [address] [address] [place] [address] Care Team Providers Care Loss Prevention Investigator Name Role Phone Anita Blackmon MD Primary Care Provider David Perez Unavailable [phone] ALLERGIES Allergen (clinical drug ingredient) Drug/Non Drug [...] chronic pain (G89.29) Active confirmed Chronic pain (78705594) Problem Muscle wasting and atrophy, not elsewhere classified, multiple sites (M62.59) Active confirmed Muscle wasting disorder (07314966) Problem Low back pain, unspecified (M54.50) Active confirmed Low back pain (458286118) PLAN OF TREATMENT Pending Test Test Name Order Date MRI : Lumbar 03/14/2023 Insurance Providers Payer Name Payer Address Payer Phone Subscriber Number Group Number Insured Name Patient Relationship to Insured Coverage Start Date Coverage End Date [facility] PMAP [address] [place] [address] [id number] Erika Yelitza Self - patient is the insured [facility] [address] [address] [place], [place] [id number] [phone] [id number] Erika Yelitza Self - patient is the insured 9 MEDICAL (GENERAL) HISTORY Medical History History ICD Code Anxiety Depression High Cholesterol Hypertension Surgical History Surgery Date(Month/Year) 8 ankle surgeries starting 2 013 at [facility] with Earl Urban MD
--- OUTSIDE RECORDS SUMMARY | 2024-05-25 10:09 | XMS_ITS | Clinical Summary ---
Author Organization [facility] Address [place], [place] [address] Care Team Providers Care Weigh Tank Operator Name Role Phone Elva Lima DO Primary [...] Comments Blood Pressure 120/86 12/29/2008 4:58 PM GEOGRAPHIC AREA INTELLIGENCE OFFICER Pulse 66 12/29/2008 4:58 PM GEOGRAPHIC AREA INTELLIGENCE OFFICER Temperature 36 ??C (96.8 ??F) 12/29/2008 4:58 PM GEOGRAPHIC AREA INTELLIGENCE OFFICER Respiratory Rate 16 09/14/2008 1:39 PM GEOGRAPHIC AREA INTELLIGENCE OFFICER Oxygen Saturation - - Inhaled Oxygen Concentration - - Weight 94.8 kg (209 lb) 12/29/2008 4:58 PM GEOGRAPHIC AREA INTELLIGENCE OFFICER Height 165.7 cm (5' 5.25) 06/01/2008 11:42 [...] 16 Negative Negative 08/15/2022 5:13 PM CDT [facility] TYPE 18 Negative Negative 08/15/2022 5:13 PM CDT [facility] OTHER HIGH RISK TYPES Positive(A) Negative 08/15/2022 5:13 PM CDT [facility] Other (Cervical) 08/13/2022 9:10 AM CDT 08/14/2022 8:24 AM CDT Narrative [facility] - 08/15/2022 5:13 PM CDT Specimen is positive for the DNA of any one of, or combination of, the following high risk HPV types: 31, 33, 35, 39, 45, 51, 52, 56, 58, 59, 66, 68. HPV types 16 and 18 DNA were undetectable or below the pre-set threshold. ? Methodology: Mayo Kaushik 4800 HPV Test Anita Blackmon MD MICROBIOLOGY [facility] [address] [place] [address], from Last 3 Months or Most Recently Relevant to Health Maintenance Care Teams Weigh Tank Operator Relationship Specialty Start Date End Date Elva Lima DO PCP - General Family Practice 04/13/14
--- OUTSIDE RECORDS SUMMARY | 2024-05-25 10:09 | XMS_ITS | Continuity of Care Document ---
Author Organization [facility] Address [address] [place] [address] Phone Care Team Providers Care Drafter Electronic Name Role Phone Brittny Horvath CNP Unavailable [...] route every day 50 MG - Active [place] 5 mg-325 mg tablet take 1 Tablet [...] Offic/outpt E&m Estab [facility], [address] [facility] [address], [place], [id number], tel:[phone] [facility] No Information Alexandru Kenney. [address] [place] [address], [address], . Referring Provider: Jean Claude Muniz, [address] [place] [address], [address]. tel:[phone] Offic Cons New/estab Mod [address] [facility] [place], [address] [facility] [address], [place], [id number], tel:[phone] [facility] No Information Alexandru Kenney. [address] [place] [address], [address], . Referring Provider: Jean Claude Muniz, [address] [place] [address], [address]. tel:[phone] Family History Family Member Type Diagnosis Age At Onset No Information Payers Payer name Insurance type Covered democrat ID Compa echevarria(s) Blue Plus [id number] Social History Type Description Quantity Date Captured [...]
--- OUTSIDE RECORDS SUMMARY | 2024-05-25 10:09 | XMS_ITS | Encounter Summary ---
Author Organization [facility] Address [address] [place] [address] Care Team Providers Care Manager Small Business Name Role Phone Ezequiel Ramesh MD Primary Care Provider + Alta Gill APRN SUPERINTENDENT METERS Unavailab le Reason for Visit * Reason Comments Medication Refill Encounter Details Date Type Department Care Team (Late st Contact Info) Description 08/22/2021 Refill [facility] [address] [place] [address] Alta Gill APRN SUPERINTENDENT METERS [address] [place] [address] Medication Refill Social History Tobacco Use Types [...] syndrome documented in this encounter Care Teams Manager Small Business Relationship Specialty Start Date End Date Ezequiel Ramesh MD PCP - General 06/12/21 Alta Gill APRN SUPERINTENDENT METERS [address] [address] [place] [address] Assigned Musculoskeletal Provider 06/18/21 01/25/23 documented as of this encounter
--- OUTSIDE RECORDS SUMMARY | 2024-05-25 10:09 | XMS_ITS | Encounter Summary ---
Author Organization [place] Address [facility] [place] [address] Care Team Providers Care Desktop Support Technician Name Role Phone Ezequiel Ramesh MD Primary Care Provider + Alta Gill APRN PERFORMANCE ARCHITECT Unavailab le Reason for Visit * Reason Onset Date Comments Call Back 10/09/2022 Encounter Details Date Type Department Care Team (Late st Contact Info) Description 10/09/[address] [facility] [address] [place] [address] Pain Management Program, [facility] Call Back Social History Tobacco Use [...] returns the call please transfer patient to [phone] to schedule Olivia Clemens Vp Integration [facility] EXPERT documented in this encounter Plan of Treatment Not on file documented as of this encounter Visit Diagnoses Not on filedocumented in this encounter Care Teams Desktop Support Technician Relationship Specialty Start Date End Date Ezequiel Ramesh MD PCP - General 06/12/21 Alta Gill APRN PERFORMANCE ARCHITECT [address] [address] [place] [address] Assigned Musculoskeletal Provider 06/18/21 01/25/23 documented as of this encounter
--- OUTSIDE RECORDS SUMMARY | 2024-05-25 10:09 | XMS_ITS | Clinical Summary ---
Author Organization [place] Address [address] [place] [address] Care Team Providers Care Reel Blade Bender Furnace Tender Name Role Phone Ezequiel Ramesh MD Primary [...] 10/26/2004, 10/26/2004, Additional history exists COVID-19 Vaccine (1 - 2022- season) 2023 PHQ-2 (once per calendar year) 2023 INFLUENZA VACCINE (#1) 2024 9, 08/08/2018, 08/01/2016, Additional history exists IPV IMMUNIZATION [...] this topic Medical Devices Implanted Type Area Tuber Machine Operator Device Identifier Shelf Expiration Date Model / Serial / Lot Bone Chip Cancellous 15cc [id number] - [id number] Implanted:Qty: 1 on 10/28/2015 Bone/Tissue/ Biologic Right: Ankle [employer] 07/06/2020 [id number] / [id number] / [id number] Bone Chips Cancellous 15cc 1-8mm - [id number] - [id number] Implanted:Qty: 1 on 12/07/2016 Bone/Tissue/ Biologic Right: Ankle HORTENSIA SP 08/12/2021 [id number] / [id number] / [id number] Screw Cancellous 6.5 X 80mm 216.080 [...] Copath Report Patient Name: YELITZA PATIÑO MR#: [id number] Specimen #: [id number] Collected: 02/05/2007 Received: 02/06/2007 Reported: 02/10/2007 08:07 [...] PARUL Pederson (ASCP) Processed and screened at [facility] CLINICAL HISTORY: LMP: 01-25-07 TESTING LAB LOCATION: [address] ??[address] COLLECTION SITE: Client: [facility] Location: CRFP (R) COPATH 02/05/2007 02/06/2007 2:3 0 PM CDT Bonny Martinez MD LABORATORY COPATH from Last 3 Months or Most Recently Relevant to Health Maintenance Care Teams Reel Blade Bender Furnace Tender Relationship Specialty Start Date End Date Ezequiel Ramesh MD PCP - General 06/12/21
--- NOTE | 2024-05-25 10:15 | CRLHL7_ITS ---
For Patients: As a result of the Century Cures Act, medical imaging exams and procedure reports are released immediately into your electronic medical record. You may view this report before your referring provider. If you have questions, please contact your health care provider. BILATERAL SCREENING MAMMOGRAM WITH COMPUTER-AIDED DETECTION AND TOMOSYNTHESIS TECHNIQUE: CC and MLO views were obtained. These mammographic images have been obtained using full-field digital technique. These mammographic images were interpreted with the benefit of computer-aided detection. Breast Tomosynthesis was used in this interpretation. COMPARISON FILM: 03/17/20. FINDINGS: There are scattered areas of fibroglandular density. IMPRESSION: There is no radiographic evidence for malignancy. ASSESSMENT: BI-RADS Category 1: Negative RECOMMENDATION: Routine screening mammogram in 1 year. A lay language report of this examination will be provided to the patient. Morales Shaikh M.D. Diagnostic Radiologist [email or web address] SP/Dictated by: Morales Shaikh MD @ 05/25/2024 12:38:00 PM (Electronically Signed)
== END 2024-05-25 10:08 | disposition home or self-care (01) ==
LOC: MAMMO 10:07
PROVIDERS: PCP Family Medicine; Visit Provider Family Medicine
DX: Z12.31 Encounter for screening mammogram for malignant neoplasm of breast (principal)
CPT/HCPCS: 77063; 77067

== ENCOUNTER 2024-12-06 14:07 | Emergency (ER) | payer MEDICAID, SELFPAY ==
[2024-12-06 14:19] VITALS: BP 94/64; PULSE 130; RESP 20; TEMP 37.4; O2SAT 100; BMI 33.8
--- NOTE | 2024-12-06 14:27 | ED_ITS ---
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 Has reddened and inflamed area on back and is concerned about cellulitis. Has been feel chills and fever. Also endorses nausea though she reports she thinks this might be from pain. 44-year-old woman presenting to the emergency department with concern of potential skin infection. Is having a great deal of pain. Has had cellulitis before. Has not had drainage nor fever. Has been scratching or picking at this area. This is not the location prior cellulitis as looks like late summer or early fall of last year. Increased stressor has has found out that her son has suicidal ideations. Hurts to move her right arm. Related Data Home Medications ?Medication ?Instructions ?Recorded ?Confirmed aspirin 81 mg tablet,delayed 81 mg PO QDAY 06/02/24 12/06/24 release duloxetine 30 mg capsule,delayed 30 mg PO DAILY 12/06/24 12/06/24 release semaglutide 0.25 mg or 0.5 mg (2 0.25 mg subcut 12/06/24 mg/3 mL) subcutaneous pen injector (Ozempic) Previous Rx's ?Medication ?Instructions ?Recorded losartan 100 mg tablet 100 mg PO QDAY #90 tabs 04/27/24 tizanidine 4 mg tablet See Rx Instructions .Route 04/27/24 .COMPLEX #90 tabs buspirone 10 mg tablet 10 mg PO BID #180 tabs 06/02/24 semaglutide 2 mg/dose (8 mg/3 mL) 2 mg (0.75 mL) subcut QWEEK 12 07/06/24 subcutaneous pen injector (Ozempic) weeks #9 mL duloxetine 60 mg capsule,delayed 60 mg PO BID #180 caps 08/04/24 release rosuvastatin 5 mg tablet 5 mg PO ONCE #90 tabs 08/04/24 omeprazole 40 mg capsule,delayed 40 mg PO QDAY #90 caps 10/07/24 release hydrocodone 5 mg-acetaminophen 325 1 tab PO BID PRN pain #20 tabs 12/07/24 mg tablet Allergies Allergy/AdvReac Type Severity Reaction Status Date / Time adhesive Allergy Intermediate rash Verified 08/04/24 08:57 sulfamethoxazole (From Allergy Mild itching Verified 12/06/24 14:18 Bactrim) trimethoprim (From Bactrim) Allergy Mild itching Verified 12/06/24 14:18 Akqurro-HBD-HpD Reductase Allergy muschle Verified 08/04/24 08:57 Inhibitor cramps clonidine AdvReac Severe Verified 08/04/24 08:57 Review of Systems Status of ROS: Reports: 6 or more systems reviewed and unremarkable except as noted in History and below PFSH PFSH Medical History Gestational diabetes ?O24.419 - Gestational diabetes mellitus in , unspecified control (ICD-10) Prediabetes ?R73.03 - Prediabetes (ICD-10) Family History Maternal Grandmother Breast cancer, Onset Age: 60 Paternal Grandmother Breast cancer, Onset Age: 60 Heart disease Maternal Grandfather Heart disease Father Lung cancer Other High blood pressure Hyperlipidemia Social History Narrative: cigarette smoker- 1 ppd does not drink alcohol does not use illicit drugs What is your current living situation?: I presently have a place to live Problems where you live: no known problems In the past 12 months, utilities in danger of being shut off: no In past 12 months, lack of transportation kept you from medical appts, meetings, work, or getting things needed for daily living: no In the past 12 mos, have been you worried that your food would run out before you had money to buy more?: never true In the past 12 mos, the food you bought just didn't last and you didn't have money to buy more?: never true Smoking Status: Current every day smoker How often do you have a drink containing alcohol: monthly or less AUDIT-C Alcohol total score: 1 Non-prescribed substance use: denies use How often does anyone, including family, friends and others, physically hurt you : never How often does anyone, including family, friends and others, insult or talk down to you: never How often does anyone, including family, friends and others, threaten you with harm: never How often does anyone, including family, friends and others, scream or curse at you: never Exam Narrative: Exam Narrative: Tremulous. Appears anxious. Breathing easily. Pain demonstrated with movement of her right arm. Heart in tachycardic rate and regular rhythm. Skin is warm and dry. Well-perfused. No edema. Skin with fullness and tenderness superior and medial to the upper back area of inflammation. Surrounding mild erosion and small scab of quarter-sized area of erythema and mild induration. I did place in point of care ultrasound over these areas and do not see any fluid collection other than directly under the wound which is about pea-sized. She prefers to defer attempts at drainage. As I went to place antibiotic ointment and a Band-Aid to protect from further picking activity, there was a trace amount of purulence that had erupted Const: Vital Signs, click to edit/add: Vital Signs - 24 hr 12/06/24 14:19 Temperature 99.4 F Pulse Rate [Pulse Oximeter] 130 H Respiratory Rate 20 Blood Pressure [Ri ght Upper Arm] 94/64 Pulse Oximetry 100 Oxygen Delivery Me thod Room Air Documenting provider has reviewed patient's vital signs: yes Course Vital Signs Vital signs: Initial Vital Signs Temperature 99.4 F 12/06/24 14:19 Temperature Source Temporal Artery Scan 12/06/24 14:19 Pulse Rate 130 H 12/06/24 14:19 Respiratory Rate 20 12/06/24 14:19 Blood Pressure 94/64 12/06/24 14:19 Blood Pressure Mean 74 12/06/24 14:19 Pulse Oximetry 100 12/06/24 14:19 Oxygen Delivery Method Room Air 12/06/24 14:19 Vital Signs Temperature 99.4 F 12/06/24 14:19 Pulse Rate 130 H 12/06/24 14:19 Respiratory Rate 20 12/06/24 14:19 Blood Pressure 94/64 12/06/24 14:19 Pulse Oximetry 100 12/06/24 14:19 Oxygen Delivery Method Room Air 12/06/24 14:19 Temperature 99.4 F 12/06/24 14:19 Pulse Rate 129 H 12/06/24 15:24 Respiratory Rate 16 12/06/24 15:24 Blood Pressure 112/79 12/06/24 15:24 Pulse Oximetry 98 12/06/24 15:24 Oxygen Delivery Method Room Air 12/06/24 15:24 Medical Decision Making MDM Narrative Medical decision making narrative: Appears to have a very small abscess and surrounding cellulitis. Looks like has just started to drain a little bit. I am pulse hold by the degree of discomfort she is having in the area. I think some of it is amplified by emotional stress. She would rather not have the this drained. Will be giving antibiotic. I do not think that the tachycardia that she presented with is appliance service representative of overwhelming infection but rather anxiety. Offering arm sling as movement is quite uncomfortable. She is requesting some more pain medicine as [id number] is not enough to help with the discomfort. Appeared somewhat reassured prior to departure. See patient discharge plan for further discussion I would keep this covered, partly so you can not cause further damage :) Watch for spreading redness, marked increase in pain or swelling, fever. Prescription of cephalexin from [facility] as well as a few tabs of [place] is discussed. Keep in mind that each tablet of [place] contains 325 mg of acetaminophen. Take the cephalexin for 8 days. Can take up to 800 mg of ibuprofen or up to 1000 mg of acetaminophen per dose. Alternative to the ibuprofen might be up to 500 mg of naproxen 2 times daily. Wear the arm sling as needed for comfort. Medical Records Medical records reviewed: Yes I reviewed the patient's medical records Discharge Plan Discharge Clinical Impression: Skin infection Patient Disposition: Home, Self-Care Condition: Stable Additional Instructions: I would keep this covered, partly so you can not cause further damage :) Watch for spreading redness, marked increase in pain or swelling, fever. Prescription of cephalexin from [facility] as well as a few tabs of [place] is discussed. Keep in mind that each tablet of [place] contains 325 mg of acetaminophen. Take the cephalexin for 8 days. Can take up to 800 mg of ibuprofen or up to 1000 mg of acetaminophen per dose. Alternative to the ibuprofen might be up to 500 mg of naproxen 2 times daily. Wear the arm sling as needed for comfort. Prescriptions: No Action aspirin 81 mg tablet,delayed release (DR/EC) 81 mg PO QDAY buspirone 10 mg tablet 10 mg PO BID Qty: 180 3RF rosuvastatin 5 mg tablet 5 mg PO ONCE Qty: 90 3RF duloxetine 60 mg capsule,delayed release(DR/EC) 60 mg PO BID Qty: 180 3RF losartan 100 mg tablet 100 mg PO QDAY Qty: 90 3RF tizanidine 4 mg tablet See Rx Instructions .ROUTE .COMPLEX Qty: 90 1RF Dose Instruction: TAKE 1 TABLET BY MOUTH EVERY 6 TO 8 HOURS NEEDED. Rx Instructions: TAKE 1 TABLET BY MOUTH EVERY 6 TO 8 HOURS NEEDED. duloxetine 30 mg capsule,delayed release(DR/EC) 30 mg PO DAILY Ozempic 0.25 mg or 0.5 mg (2 mg/3 mL) pen injector 0.25 mg subcut Ozempic 2 mg/dose (8 mg/3 mL) pen injector 2 mg subcut QWEEK 84 Days Qty: 9 3RF omeprazole 40 mg capsule,delayed release(DR/EC) 40 mg PO QDAY Qty: 90 1RF hydrocodone-acetaminophen 5-325 mg tablet 1 tab PO BID PRN (Reason: pain) Qty: 20 0RF Follow Up/Referrals: Anita Blackmon MD [Primary Care Provider] - Stand Alone Forms: [employer] Info Instructions
--- OUTSIDE RECORDS SUMMARY | 2024-12-06 15:11 | XMS_ITS | Encounter Summary ---
Author Organization [facility] Address [address] [place] [address]. [place] [address] Care Team Providers Care Manufacturing Engineering Technician Name Role Phone Ezequiel Ramesh MD Primary Care Provider + Alta Gill APRN CAKE WASHER Unavailab le Reason for Visit * Reason Comments Medication Refill Encounter Details Date Type Department Care Team (Late st Contact Info) Description 06/12/[address] 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
--- OUTSIDE RECORDS SUMMARY | 2024-12-06 15:11 | XMS_ITS | Continuity of Care Document ---
Author Organization [facility] Address [address] [place] [address] Phone Care Team Providers Care Accounts Supervisor Name Role Phone Brittny Horvath CNP Unavailable [...] route every day 50 MG - Active [place] 5 mg-325 mg tablet take 1 Tablet [...] by oral route 4 times every day - No Longer Active Procedures Procedure Date Offic/outpt E&m Estab Low-mod 4 Offic Cons New/estab Mod 40 Mi 14 QA DONE Advance Directives Directive Yes / No Effective Date File Name No Information Encounters Encounter Description Practice Location Reason(s) For Visit Diagnoses Date Provider Providers Copied on Encounter Offic/outpt E&m Estab Low-mod [facility], [address], [place], [place], [id number], tel:[phone] [facility] No Information Alexandru Kneney. [address] [place] [address], [address], . Referring Provider: Jean Claude Muniz, [address] [place] [address], [address]. tel:[phone] Offic Cons New/estab Mod 40 Mo [facility], [address] [facility] [address], [place], [id number], tel:[phone] [facility] No Information Alexandru Kenney. [address] [place] [address], [address], . Referring Provider: Jean Claude Muniz, [address] [place] [address], [address]. tel:[phone] Family History Family Member Type Diagnosis Age At Onset No Information Payers Payer name Insurance type Covered constitution party ID Authorhaleigha joshcristofer(s) Blue Plus [id number] Social History Type Description Quantity Date Captured [...]
--- OUTSIDE RECORDS SUMMARY | 2024-12-06 15:11 | XMS_ITS | Referral Summary ---
Author Organization [facility] Address [address] [place] [address] Care Team Providers Care Mechanic'S Assistant Name Role Phone Ezequiel Ramesh MD Primary Care Provider + Allergies Active Allergy Reactions Criticality Noted Date Comments Clonidine Palpitations Low 06/12/2021 No Known Drug Allergy 10/08/2005 Medications * This document contains information received from the source organization and may not represent a complete record from that organization. WAL-ZYR 10 MG OR TABS 1 TABLET DAILY Activ e TRAZODONE HCL 50 MG OR TABSIndications :Cyclothymic disorder 1 TABLET at Bedtime PRN 30 5 9 Active albuterol (PROAIR HFA/PROVENTIL HFA/VENTOLIN HFA) 108 [...] Active omeprazole (PRILOSEC) [address] capsule 1 Active amLODIPine (NORVASC) 10 MG tablet TAKE 1 TAB BY MOUTH DAILY 1 Active CIPRODEX 0.3-0.1 % otic suspension SHAKE GENTLY AND INSTILL 4 DROPS IN AFFECTED EAR TWICE A DAY 1 Active levonorgestrel- ethinyl estradiol (SEASONALE) 0.15-0.03 MG tablet Take 1 tablet by mouth daily 1 Active buPROPion (WELLBUTRIN XL) 150 MG 24 hr tablet Take 150 mg by mouth daily 2 Active sertraline (ZOLOFT) 100 MG tablet Take 200 mg by mouth daily 2 Active tiZANidine (ZANAFLEX) 4 MG tabletIndicatio ns:Chronic pain syndrome Take 1 tablet (4 mg) by mouth every 6 hours as needed for muscle spasms 90 tablet 1 2 Active pregabalin (LYRICA) 50 MG capsuleIndicati ons:Mid back pain, chronic,Chronic bilateral low back pain without sciatica,Chroni c pain of right ankle Take 1 capsule (50 mg) by mouth At Bedtime 30 capsule 1 2 Active meloxicam (MOBIC) 15 MG tabletIndicatio ns:Chronic pain syndrome TAKE 1 TABLET BY MOUTH EVERY DAY 30 tablet 1 2 Active Additional Information Patient not taking.Reported on 03/20/2022 rosuvastatin (CRESTOR) 10 MG tablet Take 10 mg by mouth 2 Active meloxicam (MOBIC) 7.5 MG tabletIndicatio ns:Chronic pain of right ankle Take 1 tablet (7.5 mg) by mouth daily 30 tablet 1 2 Active Active Problems Problem Noted Date Diagnosed Date CARDIOVASCULAR SCREENING; LDL GOAL LESS THAN 160 09/10/2010 Family history of diabetes mellitus 02/05/2007 Hypersomnia with sleep apnea 02/05/2007 Overview (08/11/2015): Problem list name updated by automated process. 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 Resolved Problems Problem Noted Date Diagnosed Date Resolved Date General counseling for initi ation of other contraceptive measures 02/05/2007 02/05/2007 Immunizations Name Administration Dates Next Due HepB 12/26/1994,08/06/1994,06/07/1994 Historical DTP/aP 04/29/1984,08/20/1983,04/25/19 83,1982,1982 MMR 06/07/1994,08/20/1983 OPV, trivalent, live 04/29/1984,04/25/1983,07/11,1982 TD,PF 7+ ([facility]) 10/26/2004 Social History Tobacco Use Types Packs/Day Years Used Date Smoking Tobacco: Every Day Cigarettes 0.5 20 Smokeless Tobacco: Never Tobacco Cessation:Ready to Q uit: Yes; Counseling Given: Yes Alcohol Use Standard Drinks/Week Comments No 0 (1 standard drink = 0.6 oz pur e alcohol) Adolescent Education Answer Date Record ed Getting School Help Needed Not on file 08/04 Comments No Sex and Gender Information Value Date Recorded Sex Assigned at Not on file 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 Gender Identity Not on file Sexual Orientation Not on file Last Filed Vital Signs Vital Sign Reading Time Taken Comments Blood Pressure 138/91 03/20/2022 10:32 AM CDT Pulse 88 03/20/2022 10:32 AM CDT Temperature 37.3 C (99.2 F) 04/07/2009 2:03 PM CDT Respiratory Rate - - Oxygen Saturation 98% 03/20/2022 10:32 AM CDT Inhaled Oxygen Concentration - - Weight 103 kg (227 lb 1.6 oz) 03/06/2022 8:27 AM CDT Height 162.6 cm (5' 4) 02/16/2020 12:49 PM CDT Body Mass Index 38.98 02/16/2020 12:49 PM CDT Plan of Treatment Not on file Medical Devices Implanted Type Area Automatic Furnace Operator Device Identifier Shelf Expiration Date Model / Serial / Lot Bone Chip Cancellous 15cc [id number] - [id number] Implanted:Qty: 1 on 10/28/2015 Bone/Tissue/ Biologic Right: Ankle [employer] 07/06/2020 [id number] / [id number] / [id number] Bone Chips Cancellous 15cc 1-8mm - [id number] - [id number] Implanted:Qty: 1 on 12/07/2016 Bone/Tissue/ Biologic Right: Ankle HORTENS[employer] SP 08/12/2021 [id number] / [id number] / [id number] Screw Cancellous 6.5 X 80mm 216.080 [...] CDT Anita Rg MD LAB - BLOOD ORDERABLES nal Result MISYS * A THIN LAYER PAP SCREEN (02/05/2007 12:00 AM CDT) PAP NUBIA Rodriguez Report Patient Name: YELITZA PATIÑO MR#: [id number] Specimen #: [id number] Collected: 02/05/2007 Received: 02/06/2007 Reported: 02/10/2007 08:07 Ordering Phy(s): BONNY MARTINEZ SPECIMEN/STAIN PROCESS: Pap thin layer prep screening ([facility]) Pap-Cyto x 1, Reflex HPV x 1 SOURCE: Cervical, endocervical Pap thin layer prep screening ([facility]) SPECIMEN ADEQUACY: Satisfactory for evaluation. -Transformation zone component absent. CYTOLOGIC INTERPRETATION: Negative for Intraepithelial Lesion or Malignancy Electronically signed out by: Shruthi Saldaña, SCT (ASCP) Processed and screened at [facility] CLINICAL HISTORY: LMP: 01-25-07 TESTING LAB LOCATION: [facility] [address] [place] [address] COLLECTION SITE: Client: [facility] Location: CRFP (R) COPATH 02/05/2007 02/06/2007 2:3 0 PM CDT Bonny Martinez MD LABORATORY Final Result COPATH from Last 3 Months or Most Recently Relevant to Health Maintenance Insurance [facility] Care Teams Mechanic'S Assistant Relationship Specialty Start Date End Date Ezequiel Ramesh MD PCP - General 06/12/21
--- OUTSIDE RECORDS SUMMARY | 2024-12-06 15:11 | XMS_ITS | Encounter Summary ---
Author Organization [facility] Address [address] [place] [address] Care Team Providers Care Quality Control Clerk Name Role Phone Ezequiel Ramesh MD Primary Care Provider + Alta Gill APRN CLINICAL LEADER Unavailab le Reason for Visit * Reason Comments Medication Refill Encounter Details Date Type Department Care Team (Late st Contact Info) Description 08/22/2021 Refill [facility] [address] [facility] [address] [place] [address] Alta Gill APRN CLINICAL LEADER [address] [place] [address] Medication Refill Social History Tobacco Use Types Packs/Day Years Used Date Smoking Tobacco: Every Day Cigarettes 0.5 20 Smokeless Tobacco: Never Alcohol Use Standard Drinks/Week Comments No 0 (1 standard drink = 0.6 oz pur e alcohol) Comments No Sex and Gender Information Value Date Recorded Sex Assigned at Not on file 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
--- OUTSIDE RECORDS SUMMARY | 2024-12-06 15:11 | XMS_ITS | Encounter Summary ---
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
--- OUTSIDE RECORDS SUMMARY | 2024-12-06 15:11 | XMS_ITS | Clinical Summary ---
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 Gender Identity Not on file Sexual Orientation [...] ORDERS 1982 LIPID 1982 MAMMO SCREENING 1982 HIV SCREENING 1997 HEPATITIS C SCREENING 2000 Pneumococcal Vaccine: Pediatrics (0 to 5 Years) and At-Risk Patients (6 to 49 Years) (1 of 2 - PCV) 2001 YEARLY PREVENTIVE VISIT 02/06/2008 02/05/2007 GLUCOSE 05/29/2013 05/29/2010, 05/11, 05/27/2010 PAP 04/01/2021 04/01/2018, 01/10, 10/15/2004 DTAP/TDAP/TD IMMUNIZATION (7 - Td or Tdap) 01/26/2023 01/26/2013, 10/26/2004, 10/26/2004, Additional history exists COVID-19 Vaccine ( - 2023- season) 2024 INFLUENZA VACCINE (#1) 2024 9, 08/08/2018, 08/01/2016, Additional history exists PHQ-2 (once per calendar year) 2024 RSV VACCINE (1 - 1-dose 75+ series) 2057 HEPATITIS B IMMUNIZATION Completed 995, 12/26/1994, 08/06/1994, [...] this topic Medical Devices Implanted Type Area Renal Technician Device Identifier Shelf Expiration Date Model / Serial / Lot Bone Chip Cancellous 15cc [id number] - [id number] Implanted:Qty: 1 on 10/28/2015 Bone/Tissue/ Biologic Right: Ankle [employer] 07/06/2020 [id number] / [id number] / [id number] Bone Chips Cancellous 15cc 1-8mm - [id number] - [id number] Implanted:Qty: 1 on 12/07/2016 Bone/Tissue/ Biologic Right: Ankle [employer] 08/12/2021 [id number] / [id number] / [id number] Screw Cancellous 6.5 X 80mm 216.080 [...] 7:25 AM CDT 05/28/2010 12:20 PM CDT us Anita Rg MD LAB - BLOOD ORDERABLES Fi nal Result MISYS * A THIN LAYER PAP SCREEN (02/05/2007 12:00 AM CDT) PAP NIL COPATH Copath Report Patient Name: YELITZA PATIÑO MR#: [id number] Specimen #: [id number] Collected: 02/05/2007 Received: 02/06/2007 Reported: 02/10/2007 08:07 Ordering Phy(s): BONNY MARTINEZ SPECIMEN/STAIN PROCESS: Pap thin layer prep screening ([facility]) Pap-Cyto x 1, Reflex HPV x 1 SOURCE: Cervical, endocervical Pap thin layer prep screening ([facility]) SPECIMEN ADEQUACY: Satisfactory for evaluation. -Transformation zone component absent. CYTOLOGIC INTERPRETATION: Negative for Intraepithelial Lesion or Malignancy Electronically signed out by: PARUL Pederson (ASCP) Processed and screened at [facility] CLINICAL HISTORY: LMP: 01-25-07 TESTING LAB LOCATION: [place] [id number] COLLECTION SITE: Client: [facility] Location: [facility] (R) COPATH 02/05/2007 02/06/2007 2:3 0 PM CDT Bonny Martinez MD LABORATORY Final Result COPATH from Last 3 Months or Most Recently Relevant to Health Maintenance Insurance [facility] Care Teams Closing Coordinator Relationship Specialty Start Date End Date Ezequiel Ramesh MD PCP - General 06/12/21
--- OUTSIDE RECORDS SUMMARY | 2024-12-06 15:11 | XMS_ITS | Encounter Summary ---
Author Organization [facility] Address [address] [place] [address]. 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 Operator Name Role Phone Ezequiel Ramesh MD Primary Care Provider + Alta Gill APRN CODING EDUCATOR Unavailab le Reason for Visit * Reason Onset Date Comments Call Back 10/09/2022 Encounter Details Date Type Department Care Team (Late st Contact Info) Description 10/09/2022 Telephone [facility] [address] [place] [phone] Pain Management Program, [facility] Call Back Social History Tobacco Use Types Packs/Day Years Used Date Smoking Tobacco: Every Day Cigarettes 0.5 20 Smokeless Tobacco: Never Alcohol Use Standard Drinks/Week Comments No 0 (1 standard drink = 0.6 oz pur e alcohol) Comments No Sex and Gender Information Value Date Recorded Sex Assigned at Not on file 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 Gender Identity Not on file Sexual Orientation Not on file documented as of this encounter Miscellaneous Notes * Telephone Encounter - Olivia Clemens - 10/09/2022 9:35 AM CST LVM for patient to schedule 60 minute in clinic transfer of care appointment with Catalina Jones.When patient returns the call please transfer patient to [phone] to schedule Olivia Clemens Glassblower [facility] AGE SMASHER documented in this encounter Plan of Treatment Not on file documented as of this encounter Visit Diagnoses Not on filedocumented in this encounter Care Teams Bevel Gear Generator Operator Relationship Specialty Start Date End Date Ezequiel Ramesh MD PCP - General 06/12/21 Alta Gill APRN CODING EDUCATOR [id number] [id number] Assigned Musculoskeletal Provider 06/18/21 01/25/23 documented as of this encounter
[2024-12-06 15:24] VITALS: BP 112/79; PULSE 129; RESP 16; O2SAT 98
== END 2024-12-06 15:35 | disposition home or self-care (01) ==
LOC: ED 15:09
PROVIDERS: Emergency Provider Family Medicine; PCP Family Medicine
DX: L08.9 Local infection of the skin and subcutaneous tissue, unspecified (principal)
CPT/HCPCS: 99283; 99284

== ENCOUNTER 2025-04-13 11:01 | Outpatient (CLI) | payer MEDICAID, SELFPAY | END 2025-04-13 11:02 | disposition home or self-care (01) | PROVIDERS: PCP Family Medicine; Visit Provider Family Medicine | DX: Z00.00 Encounter for general adult medical examination without abnormal findings (principal); E78.5 Hyperlipidemia, unspecified; E11.9 Type 2 diabetes mellitus without complications; I10 Essential (primary) hypertension; F33.0 Major depressive disorder, recurrent, mild | CPT/HCPCS: 80053; 80061; 82043; 82570 ==

== ENCOUNTER 2025-07-29 11:27 | Outpatient (CLI) | payer MEDICAID, SELFPAY ==
--- NOTE | 2025-07-29 11:30 | CRLHL7_ITS ---
For Patients: As a result of the Century Cures Act, medical imaging exams and procedure reports are released immediately into your electronic medical record. You may view this report before your referring provider. If you have questions, please contact your health care provider. INDICATION: BILATERAL SCREENING MAMMOGRAM, ASYMPTOMATIC 45 Y/O FEMALE COMPARISON: 05/25/2024, 03/17/2020 TECHNIQUE: Digital mammogram in CC and MLO projections including computer-aided detection (CAD) and tomosynthesis. BREAST COMPOSITION: The breasts are heterogeneously dense, which may obscure small masses. FINDINGS: No suspicious findings. ASSESSMENT: BI-RADS 1 Negative RECOMMENDATION: Annual screening mammogram. A lay language report of this examination will be provided to the patient. Dictated by: Morales Shaikh MD @ 07/29/2025 12:51:28 (Electronically Signed)
== END 2025-07-29 11:28 | disposition home or self-care (01) ==
LOC: MAMMO 11:28
PROVIDERS: PCP Family Medicine; Visit Provider Family Medicine
DX: Z12.31 Encounter for screening mammogram for malignant neoplasm of breast (principal); R92.333 Mammographic heterogeneous density, bilateral breasts
CPT/HCPCS: 77063; 77067